=== PATIENT | male | born 1965 | race Caucasian/White ===

== ENCOUNTER 2017-10-19 04:00 | Inpatient (IN) | payer MEDICAID, MEDICARE ==
[2017-10-19] MEDS ORDERED: Sodium Chloride 0.9% 1,000 ML IV ONE (04:24)
[2017-10-19 05:02] LABS: % BASOPHILS 0.4 % (0.0-2.0); % EOSINOPHILS 8.7 % (0.0-5.0); % LYMPHOCYTES 34.1 % (20.0-50.0); % MONOCYTES 8.3 % (2.0-10.0); % NEUTROPHILS 48.5 % (40.0-80.0); EOSINOPHILE ABSOLUTE 0.4 Th/cmm (0.1-0.4); HEMATOCRIT 48.4 % (41.0-60); HEMOGLOBIN 15.8 gm/dL (12-16); LYMPHOCYTE ABSOLUTE 1.6 Th/cmm (1.5-3.0); MEAN CELL VOLUME 85.4 fl (80-99); MEAN CORPUSCULAR HGB CONC 32.7 pg (28.0-36.0); MEAN PLATELET VOLUME 11.2 fl; MONOCYTE ABSOLUTE 0.4 Th/cmm (0.3-1.0); NEUTROPHILE ABSOLUTE 2.3 Th/cmm (1.8-8.0); PLATELET COUNT 64 Th/cmm (150-400); RED BLOOD COUNT 5.66 Mil/cmm (4.30-5.70); RED CELL DISTRIBUTION WIDTH 12.3 % (11.5-20.0); WHITE BLOOD COUNT 4.7 Th/cmm (4.8-10.8)
[2017-10-19 05:12] LABS: INR 1.01 (0.5-1.4); PROTHROMBIN TIME (TEST) 10.5 SECONDS (9.5-11.5)
[2017-10-19 05:21] LABS: ALB/GLOB RATIO 1.4 (1.0-1.8); ALBUMIN 4.2 gm/dL (4.2-5.5); ALKALINE PHOSPHATASE 72 U/L (34-104); AMYLASE SERUM 69 U/L (29-103); ANION GAP 9.3 (7.0-16.0); BILIRUBIN,TOTAL 0.6 mg/dL (0.3-1.0); BUN - UREA NITROGEN 18 mg/dL (7-25); CALCIUM SERUM 9.6 mg/dL (8.6-10.3); CARBON DIOXIDE 28.8 mEq/L (21.0-31.0); CHLORIDE 103 mEq/L (98-107); CREATININE - SERUM 0.6 mg/dL (0.7-1.3); GFR AFRICAN-AMERICAN > 60.0 ml/min (>90); GFR NON AFRICAN-AMERICAN > 60.0 ml/min; GLUCOSE 93 mg/dL (70-105); LIPASE 18 U/L (11-82); POTASSIUM SERUM 4.1 mEq/L (3.5-5.1); SGOT 21 U/L (13-39); SGPT/ALT 17 U/L (7-52); SODIUM SERUM 137 mEq/L (136-145); TOTAL PROTEIN,SERUM 7.3 gm/dL (6.0-8.3)
[2017-10-19 06:04] LABS: URINE MICROSCOPIC INDICATED? YES; URINE SOURCE CATH
[2017-10-19 06:06] LABS: URINE BILIRUBIN NEGATIVE (NEGATIVE); URINE BLOOD MODERATE (NEGATIVE); URINE GLUCOSE (UA) NEGATIVE (NEGATIVE); URINE KETONE NEGATIVE (NEGATIVE); URINE LEUKOCYTE ESTERASE NEGATIVE (NEGATIVE); URINE NITRATE NEGATIVE (NEGATIVE); URINE PROTEIN NEGATIVE (NEGATIVE); URINE UROBILINOGEN 0.2 E.U./dL (0.2 - 1.0)
[2017-10-19 06:07] LABS: URINE CLARITY HAZY (CLEAR); URINE COLOR YELLOW
[2017-10-19 06:15] LABS: URINE BACTERIA FEW /hpf (NONE SEEN); URINE EPITHELIAL CELLS FEW /lpf (FEW)
--- NOTE | 2017-10-19 06:49 | ED Physician Chart ---
ED Chief Complaint/HPI - Patient Information Date Seen:: 10/19/17 Time Seen:: 06:00 Chief Complaint:: coffee grounds emesis History of Present Illness:: 52 yr old male from [facility] [place] for emesis this am otherwise stable vitals Allergies:: Allergies Allergy/AdvReac Type Severity Reaction Status Date / Time No Known Allergies Allergy Verified 10/19/17 04:11 Vitals:: Vital Signs - 8 hr 10/19/17 10/19/17 04:00 06:14 Temp 97.0 F HR 56 56 RR 20 18 BP 104/74 113/84 O2 Sat % 94 Historian:: Medical Records ED Review of Systems - Review of Systems General/Constitutional: No fever Skin: No skin lesions Head: No headache Eyes: No loss of vision ENT: Earache Neck: No swelling Cardio Vascular: No chest pain Pulmonary: No SOB, No cough GI: Vomiting G/U: No hematuria Musculoskeletal: Other Endocrine: Other Psychiatric: Prior psych history Hematopoietic: No bruising Allergic/Immuno: No angioedema Neurological: No syncope ED Past Medical History - Past Medical History Obtainable: No (pt non verbal see records) Past Medical History: Other (chorea itz metabolic encepalopathy) Family History: Other Social History: Non Smoker Psychiatricy History: Dementia Medication: Reviewed Family Medical History - Family Member Mother History Unknown: Yes (non contributory) ED Labs/Radiology/EKG Results - Lab Results Results: Laboratory Tests 10/19/17 10/19/17 10/19/17 04:45 04:45 04:45 WBC 4.7 L RBC 5.66 Hgb 15.8 Hct 48.4 MCV 85.4 MCH 28.0 MCHC Differential 32.7 RDW 12.3 Plt Count 64 L MPV 11.2 Neutrophils % 48.5 Lymphocytes % 34.1 Monocytes % 8.3 Eosinophils % 8.7 H Basophils % 0.4 PT 10.5 INR 1.01 PTT (Actin FS) 28.3 Sodium 137 Potassium 4.1 Chloride 103 Carbon Dioxide 28.8 Anion Gap 9.3 BUN 18 Creatinine 0.6 L Est GFR ( Amer) > 60.0 Est GFR (Non-Af Amer) > 60.0 BUN/Creatinine Ratio 30.0 Glucose 93 Calcium 9.6 Total Bilirubin 0.6 AST 21 ALT 17 Alkaline Phosphatase 72 Total Protein 7.3 Albumin 4.2 Globulin 3.1 Albumin/Globulin Ratio 1.4 Amylase 69 Lipase 18 Urine Source Urine Color Urine Clarity Urine pH Ur Specific [place] Urine Protein Urine Glucose (UA) Urine Ketones Urine Blood Urine Nitrate Urine Bilirubin Urine Urobilinogen Ur Leukocyte Esterase Urine RBC Urine WBC Ur Epithelial Cells Urine Bacteria 10/19/17 05:35 WBC RBC Hgb Hct MCV MCH MCHC Differential RDW Plt Count MPV Neutrophils % Lymphocytes % Monocytes % Eosinophils % Basophils % PT INR PTT (Actin FS) Sodium Potassium Chloride Carbon Dioxide Anion Gap BUN Creatinine Est GFR ( Amer) Est GFR (Non-Af Amer) BUN/Creatinine Ratio Glucose Calcium Total Bilirubin AST ALT Alkaline Phosphatase Total Protein Albumin Globulin Albumin/Globulin Ratio Amylase Lipase Urine Source CATH Urine Color YELLOW Urine Clarity HAZY Urine pH 8.0 Ur Specific [place] 1.010 Urine Protein NEGATIVE Urine Glucose (UA) NEGATIVE Urine Ketones NEGATIVE Urine Blood MODERATE H Urine Nitrate NEGATIVE Urine Bilirubin NEGATIVE Urine Urobilinogen 0.2 Ur Leukocyte Esterase NEGATIVE Urine RBC 10-25 H Urine WBC 2-5 Ur Epithelial Cells FEW Urine Bacteria FEW - Radiology Results Results: SEE REPORTS - EKG Interpretations EKG Time:: 04:35 Rate & Rhythm: 54 NSR [place]: NL Intervals: OLD ANTERLATERAL ID ED Assessment - Assessment General Assessment: ENCEPALOPATHY ED Septic Shock - . Is Septic Shock (SBP<90, OR Lactate>4 mmol\L) present?: No - <6hrs of presentation: Vital Signs: Vital Signs - 8 hr 10/19/17 10/19/17 04:00 06:14 Temp 97.0 F HR 56 56 RR 20 18 BP 104/74 113/84 O2 Sat % 94 ED Discharge Plan - Patient Disposition Admit/Discharge/Transfer: Acute Care w/in this hosp Condition at Disposition: Unchanged
--- NOTE | 2017-10-19 07:15 | Diagnostic Imaging Report ---
Portable chest x-ray History: Cough Allowing for portable technique the heart size is normal. No focal pulmonary parenchymal processes. No hilar or mediastinal abnormalities. Impression: No acute abnormalities.
--- NOTE | 2017-10-19 07:17 | Diagnostic Imaging Report ---
CT scan abdomen and pelvis without intravenous contrast HISTORY: Hematemesis Total DLP equals 417 CTDI equals 7.9 Axial sections were obtained from the xiphoid process down to the pubic symphysis. The liver exhibits a homogeneous parenchyma. No focal lesions. The spleen appears normal. Detail is limited due to degree of patient motion. No focal amenities seen in the region of the pancreas. No significant focal renal lesions. Gastrostomy tube is seen. No significant bowel dilatation. The exam of the pelvis demonstrates a moderately distended stool-filled rectum and lower sigmoid colon. No abnormal masses or abnormal fluid collections. IMPRESSION: 1. Moderately distended stool-filled rectum and lower sigmoid colon 2. No other definite acute abnormalities 3. Gastrostomy tube
[2017-10-19] MEDS: D5-0.45NS 1,000 ML IV SCH (17:21)
[2017-10-20] MEDS: D5-0.45NS 1,000 ML IV SCH ×2 (02:31→15:28)
[2017-10-20 05:19] LABS: HEMATOCRIT 46.9 % (41.0-60); HEMOGLOBIN 15.4 gm/dL (12-16)
[2017-10-20 05:41] LABS: INR 1.06 (0.5-1.4)
[2017-10-20] MEDS ORDERED: Diatrizoate Meglumine/Diatri 30 mL Sol PO ONE (13:29)
--- NOTE | 2017-10-20 13:29 | GI Progress Note ---
Subjective - Review of Systems Subjective: ADMITTED FOR COFFEE GROUND EMESIS NO ACTIVE BLEEDING NO CONSENT AVAILABLE FOR EGD TODAY Objective - Results Result Diagrams: 10/20/17 04:34 10/19/17 04:45 Recent Labs: Laboratory Last Values WBC 4.7 Th/cmm (4.8-10.8) L 10/19/17 04:45 RBC 5.66 Mil/cmm (4.30-5.70) 10/19/17 04:45 Hgb 15.4 gm/dL (12-16) 10/20/17 04:34 Hct 46.9 % (41.0-60) 10/20/17 04:34 MCV 85.4 fl (80-99) 10/19/17 04:45 MCH 28.0 pg (26.0-30.0) 10/19/17 04:45 MCHC Differential 32.7 pg (28.0-36.0) 10/19/17 04:45 RDW 12.3 % (11.5-20.0) 10/19/17 04:45 Plt Count 64 Th/cmm (150-400) L 10/19/17 04:45 MPV 11.2 fl 10/19/17 04:45 Neutrophils % 48.5 % (40.0-80.0) 10/19/17 04:45 Lymphocytes % 34.1 % (20.0-50.0) 10/19/17 04:45 Monocytes % 8.3 % (2.0-10.0) 10/19/17 04:45 Eosinophils % 8.7 % (0.0-5.0) H 10/19/17 04:45 Basophils % 0.4 % (0.0-2.0) 10/19/17 04:45 PT 11.0 SECONDS (9.5-11.5) 10/20/17 04:34 INR 1.06 (0.5-1.4) 10/20/17 04:34 PTT (Actin FS) 28.3 SECONDS (26.0-38.0) 10/19/17 04:45 Sodium 137 mEq/L (136-145) 10/19/17 04:45 Potassium 4.1 mEq/L (3.5-5.1) 10/19/17 04:45 Chloride 103 mEq/L (98-107) 10/19/17 04:45 Carbon Dioxide 28.8 mEq/L (21.0-31.0) 10/19/17 04:45 Anion Gap 9.3 (7.0-16.0) 10/19/17 04:45 BUN 18 mg/dL (7-25) 10/19/17 04:45 Creatinine 0.6 mg/dL (0.7-1.3) L 10/19/17 04:45 Est GFR ( Amer) > 60.0 ml/min (>90) 10/19/17 04:45 Est GFR (Non-Af Amer) > 60.0 ml/min 10/19/17 04:45 BUN/Creatinine Ratio 30.0 10/19/17 04:45 Glucose 93 mg/dL (70-105) 10/19/17 04:45 Calcium 9.6 mg/dL (8.6-10.3) 10/19/17 04:45 Total Bilirubin 0.6 mg/dL (0.3-1.0) 10/19/17 04:45 AST 21 U/L (13-39) 10/19/17 04:45 ALT 17 U/L (7-52) 10/19/17 04:45 Alkaline Phosphatase 72 U/L (34-104) 10/19/17 04:45 Total Protein 7.3 gm/dL (6.0-8.3) 10/19/17 04:45 Albumin 4.2 gm/dL (4.2-5.5) 10/19/17 04:45 Globulin 3.1 gm/dL 10/19/17 04:45 Albumin/Globulin Ratio 1.4 (1.0-1.8) 10/19/17 04:45 Amylase 69 U/L (29-103) 10/19/17 04:45 Lipase 18 U/L (11-82) 10/19/17 04:45 Urine Source CATH 10/19/17 05:35 Urine Color YELLOW 10/19/17 05:35 Urine Clarity HAZY (CLEAR) 10/19/17 05:35 Urine pH 8.0 (4.6 - 8.0) 10/19/17 05:35 Ur Specific [place] 1.010 (1.005-1.030) 10/19/17 05:35 Urine Protein NEGATIVE mg/dL (NEGATIVE) 10/19/17 05:35 Urine Glucose (UA) NEGATIVE mg/dL (NEGATIVE) 10/19/17 05:35 Urine Ketones NEGATIVE mg/dL (NEGATIVE) 10/19/17 05:35 Urine Blood MODERATE (NEGATIVE) H 10/19/17 05:35 Urine Nitrate NEGATIVE (NEGATIVE) 10/19/17 05:35 Urine Bilirubin NEGATIVE (NEGATIVE) 10/19/17 05:35 Urine Urobilinogen 0.2 E.U./dL (0.2 - 1.0) 10/19/17 05:35 Ur Leukocyte Esterase NEGATIVE (NEGATIVE) 10/19/17 05:35 Urine RBC 10-25 /hpf (0-5) H 10/19/17 05:35 Urine WBC 2-5 /hpf (0-5) 10/19/17 05:35 Ur Epithelial Cells FEW /lpf (FEW) 10/19/17 05:35 Urine Bacteria FEW /hpf (NONE SEEN) 10/19/17 05:35 - Physical Exam Vitals and I&O: Vital Signs Temp 97.6 F 10/20/17 11:32 Pulse 60 10/20/17 11:32 Resp 17 10/20/17 11:32 BP 112/72 10/20/17 11:32 Pulse Ox 96 10/20/17 11:32 Intake & Output 10/19/17 10/20/17 10/20/17 18:59 06:59 18:59 Intake Total 733.333 Balance 733.333 Weight (lbs) 57.153 kg Intake: Intake, IV Amount 733.333 D5-0.45NS 1,000 ml @ 80 733.333 mls/hr IV .[id number] [facility] Rx #:[id number] Other: # Voids 3 # Bowel Movements 0 Weight Source Bedscale Active Medications: Current Medications Dextrose/Sodium Chloride (D5-0.45ns) 1,000 mls @ 80 mls/hr IV .[id number] [facility] Stop: 12/18/17 09:59 Last Admin: 10/20/17 02:31 Dose: 80 mls/hr Ondansetron HCl (Zofran) 4 mg IV Q6H PRN PRN Reason: Nausea / Vomiting Stop: 12/18/17 09:59 Pantoprazole Sodium (Protonix) 40 mg IVP BID [facility]ID Stop: 12/18/17 16:59 Last Admin: 10/20/17 08:52 Dose: 40 mg Assessment/Plan - Assessment Assessment: 52 YO MALE WITH UPPER GI BLEED WITH COFFEE GROUND EMESIS NO FURTHER BLEEDING COULD NOT DO EGD SINCE NO CONSENT HGB NORMAL 1.UPPER GI SERIES 2.FOLLOW H/H 3.PROTONIX 4.CONSIDER EGD IF HGB DROPS OR ACTIVE BLEEDING PROVIDED THAT CONSENT CAN BE OBTAINED
--- NOTE | 2017-10-20 14:46 | Diagnostic Imaging Report ---
Upper GI (Limited), through gastrostomy tube HISTORY: Gastrointestinal bleeding Both water-soluble contrast and barium were instilled into the gastric lumen. Gastrostomy tube. The exam is limited due to difficulty in patient positioning. There appears to be an abnormal contour involving the body and gastric antral region along with what appears to be markedly abnormal thickened and irregular gastric folds. Mucosal pathology cannot be excluded. Clinical correlation is needed. There is free flow of contrast into the small bowel. No obstruction. The duodenal bulb cannot be well evaluated due to overlying small bowel. IMPRESSION: 1. Limited exam as noted above 2. Evidence of markedly abnormal thickened irregular gastric mucosal folds. Mucosal pathology cannot be excluded. Clinical correlation is needed.
--- NOTE | 2017-10-20 18:06 | Consultation ---
DATE OF CONSULTATION: 10/19/2017 INPATIENT GI CONSULTATION REFERRING PHYSICIAN: Dr. Hans Bernstein. REASON FOR CONSULTATION: Upper GI bleed. HISTORY OF PRESENT ILLNESS: This is a 52-year-old male from a skilled facility who was sent to the hospital because of a coffee-ground emesis. The patient is otherwise poor historian, unable to give any meaningful history. PAST MEDICAL HISTORY: Dysphagia. PAST SURGICAL HISTORY: PEG tube placement. FAMILY HISTORY: Noncontributory. SOCIAL HISTORY: Resident of skilled facility. ALLERGIES: None. CURRENT MEDICATIONS: Zofran, Protonix, IV fluids. REVIEW OF SYSTEMS: Unobtainable. PHYSICAL EXAMINATION: VITAL SIGNS: Temperature 97.1, breathing 19, pulse of 82, blood pressure 108/68, and satting 95%. GENERAL: In no apparent distress. HEENT: Eyes are anicteric. Normal conjunctivae. Normocephalic and atraumatic. Moist mucous membranes. NECK: Soft and supple. CHEST: Clear. No effort CARDIOVASCULAR: Regular rate and rhythm. ABDOMEN: Soft, nontender and nondistended with a G-tube. SKIN: Warm and dry. EXTREMITIES: Revealed no cyanosis. LABORATORY DATA: Show white count ____, hemoglobin 15.8, and platelets of 54. INR 1.01. Total bilirubin 0.6, AST 21, ALT 17 and alkaline phosphatase 72. IMPRESSION: This is a 52-year-old male with coffee-ground emesis, cause could be from the peptic ulcer disease. The patient has known G-tube. PLAN: 1. EGD. 2. Continue Protonix. 3. Follow H and H. Thank you for allowing me to participate. Please call me if you have any questions. JOB# [id number]
--- NOTE | 2017-10-20 19:52 | General Progress Note ---
Subjective - Review of Systems Service Date: 10/20/17 Subjective: Patient seen and examined no new event reported Objective - Results Result Diagrams: 10/20/17 04:34 10/19/17 04:45 Recent Labs: Laboratory Last Values WBC 4.7 Th/cmm (4.8-10.8) L 10/19/17 04:45 RBC 5.66 Mil/cmm (4.30-5.70) 10/19/17 04:45 Hgb 15.4 gm/dL (12-16) 10/20/17 04:34 Hct 46.9 % (41.0-60) 10/20/17 04:34 MCV 85.4 fl (80-99) 10/19/17 04:45 MCH 28.0 pg (26.0-30.0) 10/19/17 04:45 MCHC Differential 32.7 pg (28.0-36.0) 10/19/17 04:45 RDW 12.3 % (11.5-20.0) 10/19/17 04:45 Plt Count 64 Th/cmm (150-400) L 10/19/17 04:45 MPV 11.2 fl 10/19/17 04:45 Neutrophils % 48.5 % (40.0-80.0) 10/19/17 04:45 Lymphocytes % 34.1 % (20.0-50.0) 10/19/17 04:45 Monocytes % 8.3 % (2.0-10.0) 10/19/17 04:45 Eosinophils % 8.7 % (0.0-5.0) H 10/19/17 04:45 Basophils % 0.4 % (0.0-2.0) 10/19/17 04:45 PT 11.0 SECONDS (9.5-11.5) 10/20/17 04:34 INR 1.06 (0.5-1.4) 10/20/17 04:34 PTT (Actin FS) 28.3 SECONDS (26.0-38.0) 10/19/17 04:45 Sodium 137 mEq/L (136-145) 10/19/17 04:45 Potassium 4.1 mEq/L (3.5-5.1) 10/19/17 04:45 Chloride 103 mEq/L (98-107) 10/19/17 04:45 Carbon Dioxide 28.8 mEq/L (21.0-31.0) 10/19/17 04:45 Anion Gap 9.3 (7.0-16.0) 10/19/17 04:45 BUN 18 mg/dL (7-25) 10/19/17 04:45 Creatinine 0.6 mg/dL (0.7-1.3) L 10/19/17 04:45 Est GFR ( Amer) > 60.0 ml/min (>90) 10/19/17 04:45 Est GFR (Non-Af Amer) > 60.0 ml/min 10/19/17 04:45 BUN/Creatinine Ratio 30.0 10/19/17 04:45 Glucose 93 mg/dL (70-105) 10/19/17 04:45 Calcium 9.6 mg/dL (8.6-10.3) 10/19/17 04:45 Total Bilirubin 0.6 mg/dL (0.3-1.0) 10/19/17 04:45 AST 21 U/L (13-39) 10/19/17 04:45 ALT 17 U/L (7-52) 10/19/17 04:45 Alkaline Phosphatase 72 U/L (34-104) 10/19/17 04:45 Total Protein 7.3 gm/dL (6.0-8.3) 10/19/17 04:45 Albumin 4.2 gm/dL (4.2-5.5) 10/19/17 04:45 Globulin 3.1 gm/dL 10/19/17 04:45 Albumin/Globulin Ratio 1.4 (1.0-1.8) 10/19/17 04:45 Amylase 69 U/L (29-103) 10/19/17 04:45 Lipase 18 U/L (11-82) 10/19/17 04:45 Urine Source CATH 10/19/17 05:35 Urine Color YELLOW 10/19/17 05:35 Urine Clarity HAZY (CLEAR) 10/19/17 05:35 Urine pH 8.0 (4.6 - 8.0) 10/19/17 05:35 Ur Specific [place] 1.010 (1.005-1.030) 10/19/17 05:35 Urine Protein NEGATIVE mg/dL (NEGATIVE) 10/19/17 05:35 Urine Glucose (UA) NEGATIVE mg/dL (NEGATIVE) 10/19/17 05:35 Urine Ketones NEGATIVE mg/dL (NEGATIVE) 10/19/17 05:35 Urine Blood MODERATE (NEGATIVE) H 10/19/17 05:35 Urine Nitrate NEGATIVE (NEGATIVE) 10/19/17 05:35 Urine Bilirubin NEGATIVE (NEGATIVE) 10/19/17 05:35 Urine Urobilinogen 0.2 E.U./dL (0.2 - 1.0) 10/19/17 05:35 Ur Leukocyte Esterase NEGATIVE (NEGATIVE) 10/19/17 05:35 Urine RBC 10-25 /hpf (0-5) H 10/19/17 05:35 Urine WBC 2-5 /hpf (0-5) 10/19/17 05:35 Ur Epithelial Cells FEW /lpf (FEW) 10/19/17 05:35 Urine Bacteria FEW /hpf (NONE SEEN) 10/19/17 05:35 - Physical Exam Vitals and I&O: Vital Signs Temp 98.7 F 10/20/17 16:07 Pulse 74 10/20/17 16:07 Resp 18 10/20/17 16:07 BP 96/69 10/20/17 16:07 Pulse Ox 97 10/20/17 16:07 Intake & Output 10/20/17 10/20/17 10/21/17 06:59 18:59 06:59 Intake Total 356.581 8164 Balance 858.484 6418 Weight (lbs) 57.153 kg Intake: Intake, IV Amount 425.465 3797 D5-0.45NS 1,000 ml @ 80 202.486 0303 mls/hr IV .[id number] [facility] Rx #:[id number] Other: # Voids 3 # Bowel Movements 0 Weight Source Bedscale Active Medications: Current Medications Dextrose/Sodium Chloride (D5-0.45ns) 1,000 mls @ 80 mls/hr IV .[id number] [facility] Stop: 12/18/17 09:59 Last Admin: 10/20/17 15:28 Dose: 80 mls/hr Ondansetron HCl (Zofran) 4 mg IV Q6H PRN PRN Reason: Nausea / Vomiting Stop: 12/18/17 09:59 Pantoprazole Sodium (Protonix) 40 mg IVP BID [facility] Stop: 12/18/17 16:59 Last Admin: 10/20/17 17:36 Dose: 40 mg Cardiovascular: Regular rate Lungs: Clear to auscultation Abdomen: Soft, no Tender Assessment/Plan - Assessment Assessment: GI BLEED Mental retardation - Plan Plan: stable EGD per GI Protonix IV Fluids
--- NOTE | 2017-10-20 20:40 | History & Physical ---
ADMIT DATE: 10/19/2017 CHIEF COMPLAINT: Cough, GI bleed. HISTORY OF PRESENT ILLNESS: This is a 52-year-old male who lives at nursing facility underlying mental retardation, was brought into the Emergency Room for evaluation of the coffee ground emesis. The patient was admitted for GI bleed workup. The patient had mental retardation, unable to communicate. Most of the history obtained probably from medical record. PAST MEDICAL HISTORY: Mental retardation, mental health disorders and dysphagia, on tube feeding. FAMILY HISTORY: Noncontributory. SOCIAL HISTORY: longterm resident. ALLERGIES: No known drug. REVIEW OF SYSTEMS: Unobtainable. PHYSICAL EXAMINATION: VITAL SIGNS: Temperature 97.6, pulse 60, respiration rate 17, blood pressure 112/72. HEART: S1, S2 normal. LUNGS: Clear. ABDOMEN: Soft. G-tube site clean. EXTREMITIES: No edema noted. AVAILABLE LABORATORY DATA: None. ASSESSMENT: 1. Gastrointestinal bleed. 2. Mental retardation. 3. Mental health disorder. PLAN: The patient admitted to tele unit and kept n.p.o. GI consult, H and H has been monitored. IV Protonix started. Further GI workup per GI specialist. The patient was given IV fluids and Protonix. The patient's condition and plan was discussed. JOB# [id number]
[2017-10-21] MEDS: D5-0.45NS 1,000 ML IV SCH ×2 (04:02→18:44)
--- NOTE | 2017-10-21 09:36 | GI Progress Note ---
Subjective - Review of Systems Service Date: 10/21/17 Subjective: No overt GI bleeding Objective - Results Result Diagrams: 10/20/17 04:34 10/19/17 04:45 Recent Labs: Laboratory Last Values WBC 4.7 Th/cmm (4.8-10.8) L 10/19/17 04:45 RBC 5.66 Mil/cmm (4.30-5.70) 10/19/17 04:45 Hgb 15.4 gm/dL (12-16) 10/20/17 04:34 Hct 46.9 % (41.0-60) 10/20/17 04:34 MCV 85.4 fl (80-99) 10/19/17 04:45 MCH 28.0 pg (26.0-30.0) 10/19/17 04:45 MCHC Differential 32.7 pg (28.0-36.0) 10/19/17 04:45 RDW 12.3 % (11.5-20.0) 10/19/17 04:45 Plt Count 64 Th/cmm (150-400) L 10/19/17 04:45 MPV 11.2 fl 10/19/17 04:45 Neutrophils % 48.5 % (40.0-80.0) 10/19/17 04:45 Lymphocytes % 34.1 % (20.0-50.0) 10/19/17 04:45 Monocytes % 8.3 % (2.0-10.0) 10/19/17 04:45 Eosinophils % 8.7 % (0.0-5.0) H 10/19/17 04:45 Basophils % 0.4 % (0.0-2.0) 10/19/17 04:45 PT 11.0 SECONDS (9.5-11.5) 10/20/17 04:34 INR 1.06 (0.5-1.4) 10/20/17 04:34 PTT (Actin FS) 28.3 SECONDS (26.0-38.0) 10/19/17 04:45 Sodium 137 mEq/L (136-145) 10/19/17 04:45 Potassium 4.1 mEq/L (3.5-5.1) 10/19/17 04:45 Chloride 103 mEq/L (98-107) 10/19/17 04:45 Carbon Dioxide 28.8 mEq/L (21.0-31.0) 10/19/17 04:45 Anion Gap 9.3 (7.0-16.0) 10/19/17 04:45 BUN 18 mg/dL (7-25) 10/19/17 04:45 Creatinine 0.6 mg/dL (0.7-1.3) L 10/19/17 04:45 Est GFR ( Amer) > 60.0 ml/min (>90) 10/19/17 04:45 Est GFR (Non-Af Amer) > 60.0 ml/min 10/19/17 04:45 BUN/Creatinine Ratio 30.0 10/19/17 04:45 Glucose 93 mg/dL (70-105) 10/19/17 04:45 Calcium 9.6 mg/dL (8.6-10.3) 10/19/17 04:45 Total Bilirubin 0.6 mg/dL (0.3-1.0) 10/19/17 04:45 AST 21 U/L (13-39) 10/19/17 04:45 ALT 17 U/L (7-52) 10/19/17 04:45 Alkaline Phosphatase 72 U/L (34-104) 10/19/17 04:45 Total Protein 7.3 gm/dL (6.0-8.3) 10/19/17 04:45 Albumin 4.2 gm/dL (4.2-5.5) 10/19/17 04:45 Globulin 3.1 gm/dL 10/19/17 04:45 Albumin/Globulin Ratio 1.4 (1.0-1.8) 10/19/17 04:45 Amylase 69 U/L (29-103) 10/19/17 04:45 Lipase 18 U/L (11-82) 10/19/17 04:45 Urine Source CATH 10/19/17 05:35 Urine Color YELLOW 10/19/17 05:35 Urine Clarity HAZY (CLEAR) 10/19/17 05:35 Urine pH 8.0 (4.6 - 8.0) 10/19/17 05:35 Ur Specific [place] 1.010 (1.005-1.030) 10/19/17 05:35 Urine Protein NEGATIVE mg/dL (NEGATIVE) 10/19/17 05:35 Urine Glucose (UA) NEGATIVE mg/dL (NEGATIVE) 10/19/17 05:35 Urine Ketones NEGATIVE mg/dL (NEGATIVE) 10/19/17 05:35 Urine Blood MODERATE (NEGATIVE) H 10/19/17 05:35 Urine Nitrate NEGATIVE (NEGATIVE) 10/19/17 05:35 Urine Bilirubin NEGATIVE (NEGATIVE) 10/19/17 05:35 Urine Urobilinogen 0.2 E.U./dL (0.2 - 1.0) 10/19/17 05:35 Ur Leukocyte Esterase NEGATIVE (NEGATIVE) 10/19/17 05:35 Urine RBC 10-25 /hpf (0-5) H 10/19/17 05:35 Urine WBC 2-5 /hpf (0-5) 10/19/17 05:35 Ur Epithelial Cells FEW /lpf (FEW) 10/19/17 05:35 Urine Bacteria FEW /hpf (NONE SEEN) 10/19/17 05:35 - Physical Exam Vitals and I&O: Vital Signs Temp 98.4 F 10/21/17 04:00 Pulse 70 10/21/17 04:00 Resp 19 10/21/17 04:00 BP 112/67 10/21/17 04:00 Pulse Ox 97 10/21/17 04:00 Intake & Output 10/20/17 10/21/17 10/21/17 18:59 06:59 18:59 Intake Total 1000 1000 Balance 1000 1000 Weight (lbs) 57.153 kg Intake: Intake, IV Amount 1000 1000 D5-0.45NS 1,000 ml @ 80 1000 1000 mls/hr IV .[id number] [facility] Rx #:[id number] Other: # Voids 3 # Bowel Movements 0 Weight Source Bedscale Active Medications: Current Medications Dextrose/Sodium Chloride (D5-0.45ns) 1,000 mls @ 80 mls/hr IV .[id number] [facility] Stop: 12/18/17 09:59 Last Admin: 10/21/17 04:02 Dose: 80 mls/hr Ondansetron HCl (Zofran) 4 mg IV Q6H PRN PRN Reason: Nausea / Vomiting Stop: 12/18/17 09:59 Pantoprazole Sodium (Protonix) 40 mg IVP BID [facility] Stop: 12/18/17 16:59 Last Admin: 10/21/17 08:21 Dose: 40 mg General: Alert HEENT: Atraumatic Cardiovascular: Regular rate Lungs: Clear to auscultation Abdomen: Soft, no Tender, no Hepatomegaly, no Splenomegaly, no Distended, no Rebound, no Mass Assessment/Plan - Assessment Assessment: 52 YO MALE WITH UPPER GI BLEED WITH COFFEE GROUND EMESIS NO FURTHER BLEEDING COULD NOT DO EGD SINCE NO CONSENT HGB NORMAL Still trying to obtain consent for EGD from pt's facility. UGI series shows possible mucosal irregularity. 1.EGD when we have consent. If emergent, we can do 2 physician consent 2.FOLLOW H/H 3.PROTONIX 4. can start feeds today, advance slowly to goal and hold for high residual
--- NOTE | 2017-10-21 21:18 | General Progress Note ---
Subjective - Review of Systems Service Date: 10/21/17 Subjective: Patient seen and examined HH stable no reported bleeding Objective - Results Result Diagrams: 10/20/17 04:34 10/19/17 04:45 Recent Labs: Laboratory Last Values WBC 4.7 Th/cmm (4.8-10.8) L 10/19/17 04:45 RBC 5.66 Mil/cmm (4.30-5.70) 10/19/17 04:45 Hgb 15.4 gm/dL (12-16) 10/20/17 04:34 Hct 46.9 % (41.0-60) 10/20/17 04:34 MCV 85.4 fl (80-99) 10/19/17 04:45 MCH 28.0 pg (26.0-30.0) 10/19/17 04:45 MCHC Differential 32.7 pg (28.0-36.0) 10/19/17 04:45 RDW 12.3 % (11.5-20.0) 10/19/17 04:45 Plt Count 64 Th/cmm (150-400) L 10/19/17 04:45 MPV 11.2 fl 10/19/17 04:45 Neutrophils % 48.5 % (40.0-80.0) 10/19/17 04:45 Lymphocytes % 34.1 % (20.0-50.0) 10/19/17 04:45 Monocytes % 8.3 % (2.0-10.0) 10/19/17 04:45 Eosinophils % 8.7 % (0.0-5.0) H 10/19/17 04:45 Basophils % 0.4 % (0.0-2.0) 10/19/17 04:45 PT 11.0 SECONDS (9.5-11.5) 10/20/17 04:34 INR 1.06 (0.5-1.4) 10/20/17 04:34 PTT (Actin FS) 28.3 SECONDS (26.0-38.0) 10/19/17 04:45 Sodium 137 mEq/L (136-145) 10/19/17 04:45 Potassium 4.1 mEq/L (3.5-5.1) 10/19/17 04:45 Chloride 103 mEq/L (98-107) 10/19/17 04:45 Carbon Dioxide 28.8 mEq/L (21.0-31.0) 10/19/17 04:45 Anion Gap 9.3 (7.0-16.0) 10/19/17 04:45 BUN 18 mg/dL (7-25) 10/19/17 04:45 Creatinine 0.6 mg/dL (0.7-1.3) L 10/19/17 04:45 Est GFR ( Amer) > 60.0 ml/min (>90) 10/19/17 04:45 Est GFR (Non-Af Amer) > 60.0 ml/min 10/19/17 04:45 BUN/Creatinine Ratio 30.0 10/19/17 04:45 Glucose 93 mg/dL (70-105) 10/19/17 04:45 Calcium 9.6 mg/dL (8.6-10.3) 10/19/17 04:45 Total Bilirubin 0.6 mg/dL (0.3-1.0) 10/19/17 04:45 AST 21 U/L (13-39) 10/19/17 04:45 ALT 17 U/L (7-52) 10/19/17 04:45 Alkaline Phosphatase 72 U/L (34-104) 10/19/17 04:45 Total Protein 7.3 gm/dL (6.0-8.3) 10/19/17 04:45 Albumin 4.2 gm/dL (4.2-5.5) 10/19/17 04:45 Globulin 3.1 gm/dL 10/19/17 04:45 Albumin/Globulin Ratio 1.4 (1.0-1.8) 10/19/17 04:45 Amylase 69 U/L (29-103) 10/19/17 04:45 Lipase 18 U/L (11-82) 10/19/17 04:45 Urine Source CATH 10/19/17 05:35 Urine Color YELLOW 10/19/17 05:35 Urine Clarity HAZY (CLEAR) 10/19/17 05:35 Urine pH 8.0 (4.6 - 8.0) 10/19/17 05:35 Ur Specific [place] 1.010 (1.005-1.030) 10/19/17 05:35 Urine Protein NEGATIVE mg/dL (NEGATIVE) 10/19/17 05:35 Urine Glucose (UA) NEGATIVE mg/dL (NEGATIVE) 10/19/17 05:35 Urine Ketones NEGATIVE mg/dL (NEGATIVE) 10/19/17 05:35 Urine Blood MODERATE (NEGATIVE) H 10/19/17 05:35 Urine Nitrate NEGATIVE (NEGATIVE) 10/19/17 05:35 Urine Bilirubin NEGATIVE (NEGATIVE) 10/19/17 05:35 Urine Urobilinogen 0.2 E.U./dL (0.2 - 1.0) 10/19/17 05:35 Ur Leukocyte Esterase NEGATIVE (NEGATIVE) 10/19/17 05:35 Urine RBC 10-25 /hpf (0-5) H 10/19/17 05:35 Urine WBC 2-5 /hpf (0-5) 10/19/17 05:35 Ur Epithelial Cells FEW /lpf (FEW) 10/19/17 05:35 Urine Bacteria FEW /hpf (NONE SEEN) 10/19/17 05:35 - Physical Exam Vitals and I&O: Vital Signs Temp 97.5 F 10/21/17 16:00 Pulse 57 10/21/17 16:00 Resp 18 10/21/17 17:55 BP 104/71 10/21/17 16:00 Pulse Ox 96 10/21/17 16:00 Intake & Output 10/21/17 10/21/17 10/22/17 06:59 18:59 06:59 Intake Total 1000 1000 106.667 Balance 1000 1000 106.667 Weight (lbs) 57.153 kg Intake: Intake, IV Amount 1000 1000 106.667 D5-0.45NS 1,000 ml @ 80 1000 1000 106.667 mls/hr IV .[id number] [facility] Rx #:[id number] Other: # Voids 3 # Bowel Movements 0 Weight Source Bedscale Active Medications: Current Medications Dextrose/Sodium Chloride (D5-0.45ns) 1,000 mls @ 80 mls/hr IV .[id number] [facility] Stop: 12/18/17 09:59 Last Infusion: 10/21/17 20:04 Dose: 80 mls/hr Ondansetron HCl (Zofran) 4 mg IV Q6H PRN PRN Reason: Nausea / Vomiting Stop: 12/18/17 09:59 Pantoprazole Sodium (Protonix) 40 mg IVP BID [facility] Stop: 12/18/17 16:59 Last Admin: 10/21/17 18:44 Dose: 40 mg Cardiovascular: Regular rate Lungs: Clear to auscultation Abdomen: Soft, Hepatomegaly, Splenomegaly, Rebound, Mass, no Tender, no Distended Assessment/Plan - Assessment Assessment: GI BLEED Mental retardation - Plan Plan: HH stable EGD per GI Per Social service no family Feeding restarted by GI Protonix IV Fluids
[2017-10-21] MEDS ORDERED: Magnesium Hydroxide (MOM) 30 mL UDC GT PRN (21:22)
[2017-10-22] MEDS: D5-0.45NS 1,000 ML IV SCH ×2 (07:13→21:59)
[2017-10-22] MEDS: POLYETHYLENE GLYCOL 3350 17 GM PACK GT SCH (09:20)
--- NOTE | 2017-10-22 10:50 | GI Progress Note ---
Subjective - Review of Systems Subjective: No overt GI bleeding Objective - Results Result Diagrams: 10/20/17 04:34 10/19/17 04:45 Recent Labs: Laboratory Last Values WBC 4.7 Th/cmm (4.8-10.8) L 10/19/17 04:45 RBC 5.66 Mil/cmm (4.30-5.70) 10/19/17 04:45 Hgb 15.4 gm/dL (12-16) 10/20/17 04:34 Hct 46.9 % (41.0-60) 10/20/17 04:34 MCV 85.4 fl (80-99) 10/19/17 04:45 MCH 28.0 pg (26.0-30.0) 10/19/17 04:45 MCHC Differential 32.7 pg (28.0-36.0) 10/19/17 04:45 RDW 12.3 % (11.5-20.0) 10/19/17 04:45 Plt Count 64 Th/cmm (150-400) L 10/19/17 04:45 MPV 11.2 fl 10/19/17 04:45 Neutrophils % 48.5 % (40.0-80.0) 10/19/17 04:45 Lymphocytes % 34.1 % (20.0-50.0) 10/19/17 04:45 Monocytes % 8.3 % (2.0-10.0) 10/19/17 04:45 Eosinophils % 8.7 % (0.0-5.0) H 10/19/17 04:45 Basophils % 0.4 % (0.0-2.0) 10/19/17 04:45 PT 11.0 SECONDS (9.5-11.5) 10/20/17 04:34 INR 1.06 (0.5-1.4) 10/20/17 04:34 PTT (Actin FS) 28.3 SECONDS (26.0-38.0) 10/19/17 04:45 Sodium 137 mEq/L (136-145) 10/19/17 04:45 Potassium 4.1 mEq/L (3.5-5.1) 10/19/17 04:45 Chloride 103 mEq/L (98-107) 10/19/17 04:45 Carbon Dioxide 28.8 mEq/L (21.0-31.0) 10/19/17 04:45 Anion Gap 9.3 (7.0-16.0) 10/19/17 04:45 BUN 18 mg/dL (7-25) 10/19/17 04:45 Creatinine 0.6 mg/dL (0.7-1.3) L 10/19/17 04:45 Est GFR ( Amer) > 60.0 ml/min (>90) 10/19/17 04:45 Est GFR (Non-Af Amer) > 60.0 ml/min 10/19/17 04:45 BUN/Creatinine Ratio 30.0 10/19/17 04:45 Glucose 93 mg/dL (70-105) 10/19/17 04:45 Calcium 9.6 mg/dL (8.6-10.3) 10/19/17 04:45 Total Bilirubin 0.6 mg/dL (0.3-1.0) 10/19/17 04:45 AST 21 U/L (13-39) 10/19/17 04:45 ALT 17 U/L (7-52) 10/19/17 04:45 Alkaline Phosphatase 72 U/L (34-104) 10/19/17 04:45 Total Protein 7.3 gm/dL (6.0-8.3) 10/19/17 04:45 Albumin 4.2 gm/dL (4.2-5.5) 10/19/17 04:45 Globulin 3.1 gm/dL 10/19/17 04:45 Albumin/Globulin Ratio 1.4 (1.0-1.8) 10/19/17 04:45 Amylase 69 U/L (29-103) 10/19/17 04:45 Lipase 18 U/L (11-82) 10/19/17 04:45 Urine Source CATH 10/19/17 05:35 Urine Color YELLOW 10/19/17 05:35 Urine Clarity HAZY (CLEAR) 10/19/17 05:35 Urine pH 8.0 (4.6 - 8.0) 10/19/17 05:35 Ur Specific [place] 1.010 (1.005-1.030) 10/19/17 05:35 Urine Protein NEGATIVE mg/dL (NEGATIVE) 10/19/17 05:35 Urine Glucose (UA) NEGATIVE mg/dL (NEGATIVE) 10/19/17 05:35 Urine Ketones NEGATIVE mg/dL (NEGATIVE) 10/19/17 05:35 Urine Blood MODERATE (NEGATIVE) H 10/19/17 05:35 Urine Nitrate NEGATIVE (NEGATIVE) 10/19/17 05:35 Urine Bilirubin NEGATIVE (NEGATIVE) 10/19/17 05:35 Urine Urobilinogen 0.2 E.U./dL (0.2 - 1.0) 10/19/17 05:35 Ur Leukocyte Esterase NEGATIVE (NEGATIVE) 10/19/17 05:35 Urine RBC 10-25 /hpf (0-5) H 10/19/17 05:35 Urine WBC 2-5 /hpf (0-5) 10/19/17 05:35 Ur Epithelial Cells FEW /lpf (FEW) 10/19/17 05:35 Urine Bacteria FEW /hpf (NONE SEEN) 10/19/17 05:35 - Physical Exam Vitals and I&O: Vital Signs Temp 97.0 F 10/22/17 09:36 Pulse 60 10/22/17 09:36 Resp 19 10/22/17 09:36 BP 109/67 10/22/17 09:36 Pulse Ox 99 10/22/17 09:36 Intake & Output 10/21/17 10/22/17 10/22/17 18:59 06:59 18:59 Intake Total 1000 296.667 892 Balance 1000 296.667 892 Weight (lbs) 55.565 kg Intake: Intake, IV Amount 1000 106.667 892 D5-0.45NS 1,000 ml @ 80 1000 106.667 892 mls/hr IV .[id number] [facility] Rx #:[id number] Other 190 Other: # Voids 2 # Bowel Movements 0 Weight Source Bedscale Active Medications: Current Medications Acetaminophen (Tylenol 650mg/20.3ml Suspension) 650 mg GT Q6H PRN PRN Reason: Pain (Mild) Stop: 12/20/17 21:29 Ascorbic Acid (Vitamin C) 500 mg GT DAILY [facility] Stop: 12/21/17 08:59 Last Admin: 10/22/17 09:21 Dose: 500 mg Bisacodyl (Dulcolax 10 Mg Supp) 10 mg RC DAILY PRN PRN Reason: Constipation Stop: 12/20/17 21:23 Docusate Sodium (Colace) 100 mg PO DAILY [facility] Stop: 12/21/17 08:59 Famotidine (Pepcid) 20 mg GT DAILY [facility] Stop: 12/21/17 08:59 Last Admin: 10/22/17 09:21 Dose: 20 mg Dextrose/Sodium Chloride (D5-0.45ns) 1,000 mls @ 80 mls/hr IV .[id number] [facility] Stop: 12/18/17 09:59 Last Admin: 10/22/17 07:13 Dose: 80 mls/hr Magnesium Hydroxide (Milk Of Magnesia) 30 ml GT DAILY PRN PRN Reason: Constipation Stop: 12/20/17 21:21 Midodrine (Proamatine) 10 mg GT TID [facility] Stop: 12/21/17 08:59 Last Admin: 10/22/17 09:20 Dose: 10 mg Olanzapine (Zyprexa) 10 mg GT DAILY [facility] PRN Reason: Protocol Stop: 12/21/17 08:59 Last Admin: 10/22/17 09:21 Dose: 10 mg Ondansetron HCl (Zofran) 4 mg IV Q6H PRN PRN Reason: Nausea / Vomiting Stop: 12/18/17 09:59 Pantoprazole Sodium (Protonix) 40 mg IVP BID [facility] Stop: 12/18/17 16:59 Last Admin: 10/22/17 09:20 Dose: 40 mg Polyethylene Glycol (Miralax) 17 gm GT DAILY [facility] Stop: 12/21/17 08:59 Last Admin: 10/22/17 09:20 Dose: 17 gm General: Alert HEENT: Atraumatic Cardiovascular: Regular rate Lungs: Clear to auscultation Abdomen: Soft, Hepatomegaly, Splenomegaly, Rebound, Mass, no Tender, no Distended Assessment/Plan - Assessment Assessment: 52 YO MALE WITH UPPER GI BLEED WITH COFFEE GROUND EMESIS NO FURTHER BLEEDING COULD NOT DO EGD SINCE NO CONSENT HGB NORMAL Still trying to obtain consent for EGD from pt's facility. UGI series shows possible mucosal irregularity. 1.EGD when we have consent from the patient's conservator. This is not life threatening, but the pt should have EGD given imaging finding. 2.FOLLOW H/H 3.PROTONIX 4. can start feeds today, advance slowly to goal and hold for high residual
[2017-10-22] MEDS: Docusate Sodium 100 mg/10 mL UD GT SCH (13:57)
--- NOTE | 2017-10-22 15:43 | General Progress Note ---
Subjective - Review of Systems Service Date: 10/22/17 Subjective: Patient seen and examined HH stable no reported bleeding Objective - Results Result Diagrams: 10/20/17 04:34 10/19/17 04:45 Recent Labs: Laboratory Last Values WBC 4.7 Th/cmm (4.8-10.8) L 10/19/17 04:45 RBC 5.66 Mil/cmm (4.30-5.70) 10/19/17 04:45 Hgb 15.4 gm/dL (12-16) 10/20/17 04:34 Hct 46.9 % (41.0-60) 10/20/17 04:34 MCV 85.4 fl (80-99) 10/19/17 04:45 MCH 28.0 pg (26.0-30.0) 10/19/17 04:45 MCHC Differential 32.7 pg (28.0-36.0) 10/19/17 04:45 RDW 12.3 % (11.5-20.0) 10/19/17 04:45 Plt Count 64 Th/cmm (150-400) L 10/19/17 04:45 MPV 11.2 fl 10/19/17 04:45 Neutrophils % 48.5 % (40.0-80.0) 10/19/17 04:45 Lymphocytes % 34.1 % (20.0-50.0) 10/19/17 04:45 Monocytes % 8.3 % (2.0-10.0) 10/19/17 04:45 Eosinophils % 8.7 % (0.0-5.0) H 10/19/17 04:45 Basophils % 0.4 % (0.0-2.0) 10/19/17 04:45 PT 11.0 SECONDS (9.5-11.5) 10/20/17 04:34 INR 1.06 (0.5-1.4) 10/20/17 04:34 PTT (Actin FS) 28.3 SECONDS (26.0-38.0) 10/19/17 04:45 Sodium 137 mEq/L (136-145) 10/19/17 04:45 Potassium 4.1 mEq/L (3.5-5.1) 10/19/17 04:45 Chloride 103 mEq/L (98-107) 10/19/17 04:45 Carbon Dioxide 28.8 mEq/L (21.0-31.0) 10/19/17 04:45 Anion Gap 9.3 (7.0-16.0) 10/19/17 04:45 BUN 18 mg/dL (7-25) 10/19/17 04:45 Creatinine 0.6 mg/dL (0.7-1.3) L 10/19/17 04:45 Est GFR ( Amer) > 60.0 ml/min (>90) 10/19/17 04:45 Est GFR (Non-Af Amer) > 60.0 ml/min 10/19/17 04:45 BUN/Creatinine Ratio 30.0 10/19/17 04:45 Glucose 93 mg/dL (70-105) 10/19/17 04:45 Calcium 9.6 mg/dL (8.6-10.3) 10/19/17 04:45 Total Bilirubin 0.6 mg/dL (0.3-1.0) 10/19/17 04:45 AST 21 U/L (13-39) 10/19/17 04:45 ALT 17 U/L (7-52) 10/19/17 04:45 Alkaline Phosphatase 72 U/L (34-104) 10/19/17 04:45 Total Protein 7.3 gm/dL (6.0-8.3) 10/19/17 04:45 Albumin 4.2 gm/dL (4.2-5.5) 10/19/17 04:45 Globulin 3.1 gm/dL 10/19/17 04:45 Albumin/Globulin Ratio 1.4 (1.0-1.8) 10/19/17 04:45 Amylase 69 U/L (29-103) 10/19/17 04:45 Lipase 18 U/L (11-82) 10/19/17 04:45 Urine Source CATH 10/19/17 05:35 Urine Color YELLOW 10/19/17 05:35 Urine Clarity HAZY (CLEAR) 10/19/17 05:35 Urine pH 8.0 (4.6 - 8.0) 10/19/17 05:35 Ur Specific [place] 1.010 (1.005-1.030) 10/19/17 05:35 Urine Protein NEGATIVE mg/dL (NEGATIVE) 10/19/17 05:35 Urine Glucose (UA) NEGATIVE mg/dL (NEGATIVE) 10/19/17 05:35 Urine Ketones NEGATIVE mg/dL (NEGATIVE) 10/19/17 05:35 Urine Blood MODERATE (NEGATIVE) H 10/19/17 05:35 Urine Nitrate NEGATIVE (NEGATIVE) 10/19/17 05:35 Urine Bilirubin NEGATIVE (NEGATIVE) 10/19/17 05:35 Urine Urobilinogen 0.2 E.U./dL (0.2 - 1.0) 10/19/17 05:35 Ur Leukocyte Esterase NEGATIVE (NEGATIVE) 10/19/17 05:35 Urine RBC 10-25 /hpf (0-5) H 10/19/17 05:35 Urine WBC 2-5 /hpf (0-5) 10/19/17 05:35 Ur Epithelial Cells FEW /lpf (FEW) 10/19/17 05:35 Urine Bacteria FEW /hpf (NONE SEEN) 10/19/17 05:35 - Physical Exam Vitals and I&O: Vital Signs Temp 97.2 F 10/22/17 13:00 Pulse 51 10/22/17 13:00 Resp 19 10/22/17 13:00 BP 108/61 10/22/17 13:00 Pulse Ox 99 10/22/17 13:00 Intake & Output 10/21/17 10/22/17 10/22/17 18:59 06:59 18:59 Intake Total 1000 296.667 892 Balance 1000 296.667 892 Weight (lbs) 55.565 kg Intake: Intake, IV Amount 1000 106.667 892 D5-0.45NS 1,000 ml @ 80 1000 106.667 892 mls/hr IV .[id number] [facility] Rx #:[id number] Other 190 Other: # Voids 2 # Bowel Movements 0 Weight Source Bedscale Active Medications: Current Medications Acetaminophen (Tylenol 650mg/20.3ml Suspension) 650 mg GT Q6H PRN PRN Reason: Pain (Mild) Stop: 12/20/17 21:29 Ascorbic Acid (Vitamin C) 500 mg GT DAILY [facility] Stop: 12/21/17 08:59 Last Admin: 10/22/17 09:21 Dose: 500 mg Bisacodyl (Dulcolax 10 Mg Supp) 10 mg RC DAILY PRN PRN Reason: Constipation Stop: 12/20/17 21:23 Last Admin: 10/22/17 13:57 Dose: 10 mg Docusate Sodium (Colace) 100 mg GT DAILY [facility] Stop: 12/21/17 11:14 Last Admin: 10/22/17 13:57 Dose: 100 mg Famotidine (Pepcid) 20 mg GT DAILY [facility] Stop: 12/21/17 08:59 Last Admin: 10/22/17 09:21 Dose: 20 mg Dextrose/Sodium Chloride (D5-0.45ns) 1,000 mls @ 80 mls/hr IV .[id number] [facility] Stop: 12/18/17 09:59 Last Admin: 10/22/17 07:13 Dose: 80 mls/hr Magnesium Hydroxide (Milk Of Magnesia) 30 ml GT DAILY PRN PRN Reason: Constipation Stop: 12/20/17 21:21 Midodrine (Proamatine) 10 mg GT TID [facility] Stop: 12/21/17 08:59 Last Admin: 10/22/17 13:57 Dose: 10 mg Olanzapine (Zyprexa) 10 mg GT DAILY [facility] PRN Reason: Protocol Stop: 12/21/17 08:59 Last Admin: 10/22/17 09:21 Dose: 10 mg Ondansetron HCl (Zofran) 4 mg IV Q6H PRN PRN Reason: Nausea / Vomiting Stop: 12/18/17 09:59 Pantoprazole Sodium (Protonix) 40 mg IVP BID [facility] Stop: 12/18/17 16:59 Last Admin: 10/22/17 09:20 Dose: 40 mg Polyethylene Glycol (Miralax) 17 gm GT DAILY [facility] Stop: 12/21/17 08:59 Last Admin: 10/22/17 09:20 Dose: 17 gm Cardiovascular: Regular rate Lungs: Clear to auscultation Abdomen: Soft, Hepatomegaly, Splenomegaly, Rebound, Mass, no Tender, no Distended Assessment/Plan - Assessment Assessment: GI BLEED Mental retardation - Plan Plan: Patient HH is stable Still awaiting EGD consent. Per GI no life threating issue since no active bleeding and HH stable DC back to [facility] today with outpatient EGD arrangement per PCP. DC plan discussed with the patient's nurse
[2017-10-23] MEDS: POLYETHYLENE GLYCOL 3350 17 GM PACK GT SCH (08:51)
[2017-10-23] MEDS: Docusate Sodium 100 mg/10 mL UD GT SCH (08:51)
--- NOTE | 2017-10-23 09:17 | GI Progress Note ---
Subjective - Review of Systems Service Date: 10/23/17 Subjective: No overt GI bleeding Objective - Results Result Diagrams: 10/20/17 04:34 10/19/17 04:45 Recent Labs: Laboratory Last Values WBC 4.7 Th/cmm (4.8-10.8) L 10/19/17 04:45 RBC 5.66 Mil/cmm (4.30-5.70) 10/19/17 04:45 Hgb 15.4 gm/dL (12-16) 10/20/17 04:34 Hct 46.9 % (41.0-60) 10/20/17 04:34 MCV 85.4 fl (80-99) 10/19/17 04:45 MCH 28.0 pg (26.0-30.0) 10/19/17 04:45 MCHC Differential 32.7 pg (28.0-36.0) 10/19/17 04:45 RDW 12.3 % (11.5-20.0) 10/19/17 04:45 Plt Count 64 Th/cmm (150-400) L 10/19/17 04:45 MPV 11.2 fl 10/19/17 04:45 Neutrophils % 48.5 % (40.0-80.0) 10/19/17 04:45 Lymphocytes % 34.1 % (20.0-50.0) 10/19/17 04:45 Monocytes % 8.3 % (2.0-10.0) 10/19/17 04:45 Eosinophils % 8.7 % (0.0-5.0) H 10/19/17 04:45 Basophils % 0.4 % (0.0-2.0) 10/19/17 04:45 PT 11.0 SECONDS (9.5-11.5) 10/20/17 04:34 INR 1.06 (0.5-1.4) 10/20/17 04:34 PTT (Actin FS) 28.3 SECONDS (26.0-38.0) 10/19/17 04:45 Sodium 137 mEq/L (136-145) 10/19/17 04:45 Potassium 4.1 mEq/L (3.5-5.1) 10/19/17 04:45 Chloride 103 mEq/L (98-107) 10/19/17 04:45 Carbon Dioxide 28.8 mEq/L (21.0-31.0) 10/19/17 04:45 Anion Gap 9.3 (7.0-16.0) 10/19/17 04:45 BUN 18 mg/dL (7-25) 10/19/17 04:45 Creatinine 0.6 mg/dL (0.7-1.3) L 10/19/17 04:45 Est GFR ( Amer) > 60.0 ml/min (>90) 10/19/17 04:45 Est GFR (Non-Af Amer) > 60.0 ml/min 10/19/17 04:45 BUN/Creatinine Ratio 30.0 10/19/17 04:45 Glucose 93 mg/dL (70-105) 10/19/17 04:45 Calcium 9.6 mg/dL (8.6-10.3) 10/19/17 04:45 Total Bilirubin 0.6 mg/dL (0.3-1.0) 10/19/17 04:45 AST 21 U/L (13-39) 10/19/17 04:45 ALT 17 U/L (7-52) 10/19/17 04:45 Alkaline Phosphatase 72 U/L (34-104) 10/19/17 04:45 Total Protein 7.3 gm/dL (6.0-8.3) 10/19/17 04:45 Albumin 4.2 gm/dL (4.2-5.5) 10/19/17 04:45 Globulin 3.1 gm/dL 10/19/17 04:45 Albumin/Globulin Ratio 1.4 (1.0-1.8) 10/19/17 04:45 Amylase 69 U/L (29-103) 10/19/17 04:45 Lipase 18 U/L (11-82) 10/19/17 04:45 Urine Source CATH 10/19/17 05:35 Urine Color YELLOW 10/19/17 05:35 Urine Clarity HAZY (CLEAR) 10/19/17 05:35 Urine pH 8.0 (4.6 - 8.0) 10/19/17 05:35 Ur Specific [place] 1.010 (1.005-1.030) 10/19/17 05:35 Urine Protein NEGATIVE mg/dL (NEGATIVE) 10/19/17 05:35 Urine Glucose (UA) NEGATIVE mg/dL (NEGATIVE) 10/19/17 05:35 Urine Ketones NEGATIVE mg/dL (NEGATIVE) 10/19/17 05:35 Urine Blood MODERATE (NEGATIVE) H 10/19/17 05:35 Urine Nitrate NEGATIVE (NEGATIVE) 10/19/17 05:35 Urine Bilirubin NEGATIVE (NEGATIVE) 10/19/17 05:35 Urine Urobilinogen 0.2 E.U./dL (0.2 - 1.0) 10/19/17 05:35 Ur Leukocyte Esterase NEGATIVE (NEGATIVE) 10/19/17 05:35 Urine RBC 10-25 /hpf (0-5) H 10/19/17 05:35 Urine WBC 2-5 /hpf (0-5) 10/19/17 05:35 Ur Epithelial Cells FEW /lpf (FEW) 10/19/17 05:35 Urine Bacteria FEW /hpf (NONE SEEN) 10/19/17 05:35 - Physical Exam Vitals and I&O: Vital Signs Temp 97.4 F 10/23/17 07:38 Pulse 59 10/23/17 07:38 Resp 18 10/23/17 07:38 BP 103/66 10/23/17 07:38 Pulse Ox 94 10/23/17 07:38 Intake & Output 10/22/17 10/23/17 10/23/17 18:59 06:59 18:59 Intake Total 892 1720 Balance 892 1720 Weight (lbs) 55.565 kg 55.565 kg Intake: Intake, IV Amount 892 1000 D5-0.45NS 1,000 ml @ 80 892 1000 mls/hr IV .[id number] [facility] Rx #:[id number] Tube Feeding 480 Other 240 Other: # Voids 4 3 # Bowel Movements 1 1 Stool Characteristics Soft Brown Weight Source Bedscale Bedscale Active Medications: Current Medications Acetaminophen (Tylenol 650mg/20.3ml Suspension) 650 mg GT Q6H PRN PRN Reason: Pain (Mild) Stop: 12/20/17 21:29 Ascorbic Acid (Vitamin C) 500 mg GT DAILY [facility] Stop: 12/21/17 08:59 Last Admin: 10/23/17 08:51 Dose: 500 mg Bisacodyl (Dulcolax 10 Mg Supp) 10 mg RC DAILY PRN PRN Reason: Constipation Stop: 12/20/17 21:23 Last Admin: 10/22/17 13:57 Dose: 10 mg Docusate Sodium (Colace) 100 mg GT DAILY [facility] Stop: 12/21/17 11:14 Last Admin: 10/23/17 08:51 Dose: 100 mg Famotidine (Pepcid) 20 mg GT DAILY [facility] Stop: 12/21/17 08:59 Last Admin: 10/23/17 08:51 Dose: 20 mg Dextrose/Sodium Chloride (D5-0.45ns) 1,000 mls @ 80 mls/hr IV .[id number] [facility] Stop: 12/18/17 09:59 Last Admin: 10/22/17 21:59 Dose: 80 mls/hr Magnesium Hydroxide (Milk Of Magnesia) 30 ml GT DAILY PRN PRN Reason: Constipation Stop: 12/20/17 21:21 Midodrine (Proamatine) 10 mg GT TID [facility] Stop: 12/21/17 08:59 Last Admin: 10/23/17 08:51 Dose: 10 mg Olanzapine (Zyprexa) 10 mg GT DAILY DAVID PRN Reason: Protocol Stop: 12/21/17 08:59 Last Admin: 10/23/17 08:51 Dose: 10 mg Ondansetron HCl (Zofran) 4 mg IV Q6H PRN PRN Reason: Nausea / Vomiting Stop: 12/18/17 09:59 Pantoprazole Sodium (Protonix) 40 mg IVP BID [facility] Stop: 12/18/17 16:59 Last Admin: 10/23/17 08:51 Dose: 40 mg Polyethylene Glycol (Miralax) 17 gm GT DAILY [facility] Stop: 12/21/17 08:59 Last Admin: 10/23/17 08:51 Dose: 17 gm General: Alert HEENT: Atraumatic Cardiovascular: Regular rate Lungs: Clear to auscultation Abdomen: Soft, Hepatomegaly, Splenomegaly, Rebound, Mass, no Tender, no Distended Assessment/Plan - Assessment Assessment: 52 YO MALE WITH UPPER GI BLEED WITH COFFEE GROUND EMESIS NO FURTHER BLEEDING COULD NOT DO EGD SINCE NO CONSENT HGB NORMAL Still trying to obtain consent for EGD from pt's facility. UGI series shows possible mucosal irregularity. 1.EGD should be performed once consent is obtained from his conservator given imaging finding. As pt is not bleeding now, this can also be done in the outpt setting 2.FOLLOW H/H 3.PROTONIX 4. cont feeding
[2017-10-23] MEDS: D5-0.45NS 1,000 ML IV SCH (16:04)
--- NOTE | 2017-10-24 09:40 | GI Progress Note ---
Subjective - Review of Systems Service Date: 10/24/17 Subjective: No overt GI bleeding, no new changes Objective - Results Result Diagrams: 10/20/17 04:34 10/19/17 04:45 Recent Labs: Laboratory Last Values WBC 4.7 Th/cmm (4.8-10.8) L 10/19/17 04:45 RBC 5.66 Mil/cmm (4.30-5.70) 10/19/17 04:45 Hgb 15.4 gm/dL (12-16) 10/20/17 04:34 Hct 46.9 % (41.0-60) 10/20/17 04:34 MCV 85.4 fl (80-99) 10/19/17 04:45 MCH 28.0 pg (26.0-30.0) 10/19/17 04:45 MCHC Differential 32.7 pg (28.0-36.0) 10/19/17 04:45 RDW 12.3 % (11.5-20.0) 10/19/17 04:45 Plt Count 64 Th/cmm (150-400) L 10/19/17 04:45 MPV 11.2 fl 10/19/17 04:45 Neutrophils % 48.5 % (40.0-80.0) 10/19/17 04:45 Lymphocytes % 34.1 % (20.0-50.0) 10/19/17 04:45 Monocytes % 8.3 % (2.0-10.0) 10/19/17 04:45 Eosinophils % 8.7 % (0.0-5.0) H 10/19/17 04:45 Basophils % 0.4 % (0.0-2.0) 10/19/17 04:45 PT 11.0 SECONDS (9.5-11.5) 10/20/17 04:34 INR 1.06 (0.5-1.4) 10/20/17 04:34 PTT (Actin FS) 28.3 SECONDS (26.0-38.0) 10/19/17 04:45 Sodium 137 mEq/L (136-145) 10/19/17 04:45 Potassium 4.1 mEq/L (3.5-5.1) 10/19/17 04:45 Chloride 103 mEq/L (98-107) 10/19/17 04:45 Carbon Dioxide 28.8 mEq/L (21.0-31.0) 10/19/17 04:45 Anion Gap 9.3 (7.0-16.0) 10/19/17 04:45 BUN 18 mg/dL (7-25) 10/19/17 04:45 Creatinine 0.6 mg/dL (0.7-1.3) L 10/19/17 04:45 Est GFR ( Amer) > 60.0 ml/min (>90) 10/19/17 04:45 Est GFR (Non-Af Amer) > 60.0 ml/min 10/19/17 04:45 BUN/Creatinine Ratio 30.0 10/19/17 04:45 Glucose 93 mg/dL (70-105) 10/19/17 04:45 Calcium 9.6 mg/dL (8.6-10.3) 10/19/17 04:45 Total Bilirubin 0.6 mg/dL (0.3-1.0) 10/19/17 04:45 AST 21 U/L (13-39) 10/19/17 04:45 ALT 17 U/L (7-52) 10/19/17 04:45 Alkaline Phosphatase 72 U/L (34-104) 10/19/17 04:45 Total Protein 7.3 gm/dL (6.0-8.3) 10/19/17 04:45 Albumin 4.2 gm/dL (4.2-5.5) 10/19/17 04:45 Globulin 3.1 gm/dL 10/19/17 04:45 Albumin/Globulin Ratio 1.4 (1.0-1.8) 10/19/17 04:45 Amylase 69 U/L (29-103) 10/19/17 04:45 Lipase 18 U/L (11-82) 10/19/17 04:45 Urine Source CATH 10/19/17 05:35 Urine Color YELLOW 10/19/17 05:35 Urine Clarity HAZY (CLEAR) 10/19/17 05:35 Urine pH 8.0 (4.6 - 8.0) 10/19/17 05:35 Ur Specific [place] 1.010 (1.005-1.030) 10/19/17 05:35 Urine Protein NEGATIVE mg/dL (NEGATIVE) 10/19/17 05:35 Urine Glucose (UA) NEGATIVE mg/dL (NEGATIVE) 10/19/17 05:35 Urine Ketones NEGATIVE mg/dL (NEGATIVE) 10/19/17 05:35 Urine Blood MODERATE (NEGATIVE) H 10/19/17 05:35 Urine Nitrate NEGATIVE (NEGATIVE) 10/19/17 05:35 Urine Bilirubin NEGATIVE (NEGATIVE) 10/19/17 05:35 Urine Urobilinogen 0.2 E.U./dL (0.2 - 1.0) 10/19/17 05:35 Ur Leukocyte Esterase NEGATIVE (NEGATIVE) 10/19/17 05:35 Urine RBC 10-25 /hpf (0-5) H 10/19/17 05:35 Urine WBC 2-5 /hpf (0-5) 10/19/17 05:35 Ur Epithelial Cells FEW /lpf (FEW) 10/19/17 05:35 Urine Bacteria FEW /hpf (NONE SEEN) 10/19/17 05:35 - Physical Exam Vitals and I&O: Vital Signs Temp 97.6 F 10/24/17 03:46 Pulse 58 10/24/17 03:46 Resp 17 10/24/17 08:26 BP 111/54 10/24/17 03:46 Pulse Ox 96 10/24/17 03:46 Intake & Output 10/23/17 10/24/17 10/24/17 18:59 06:59 18:59 Intake Total 1000 580 Balance 1000 580 Weight (lbs) 62.596 kg Intake: Intake, IV Amount 1000 D5-0.45NS 1,000 ml @ 80 1000 mls/hr IV .[id number] [facility] Rx #:[id number] Tube Feeding 480 Other 100 Other: # Voids 3 Stool Characteristics Soft Weight Source Bedscale Active Medications: Current Medications Acetaminophen (Tylenol 650mg/20.3ml Suspension) 650 mg GT Q6H PRN PRN Reason: Pain (Mild) Stop: 12/20/17 21:29 Ascorbic Acid (Vitamin C) 500 mg GT DAILY [facility] Stop: 12/21/17 08:59 Last Admin: 10/23/17 08:51 Dose: 500 mg Bisacodyl (Dulcolax 10 Mg Supp) 10 mg RC DAILY PRN PRN Reason: Constipation Stop: 12/20/17 21:23 Last Admin: 10/22/17 13:57 Dose: 10 mg Docusate Sodium (Colace) 100 mg GT DAILY [facility] Stop: 12/21/17 11:14 Last Admin: 10/23/17 08:51 Dose: 100 mg Famotidine (Pepcid) 20 mg GT DAILY [facility] Stop: 12/21/17 08:59 Last Admin: 10/23/17 08:51 Dose: 20 mg Dextrose/Sodium Chloride (D5-0.45ns) 1,000 mls @ 80 mls/hr IV .[id number] [facility] Stop: 12/18/17 09:59 Last Admin: 10/23/17 16:04 Dose: 80 mls/hr Magnesium Hydroxide (Milk Of Magnesia) 30 ml GT DAILY PRN PRN Reason: Constipation Stop: 12/20/17 21:21 Midodrine (Proamatine) 10 mg GT TID [facility] Stop: 12/21/17 08:59 Last Admin: 10/23/17 20:53 Dose: 10 mg Olanzapine (Zyprexa) 10 mg GT DAILY [facility] PRN Reason: Protocol Stop: 12/21/17 08:59 Last Admin: 10/23/17 08:51 Dose: 10 mg Ondansetron HCl (Zofran) 4 mg IV Q6H PRN PRN Reason: Nausea / Vomiting Stop: 12/18/17 09:59 Pantoprazole Sodium (Protonix) 40 mg IVP BID [facility] Stop: 12/18/17 16:59 Last Admin: 10/23/17 16:03 Dose: 40 mg Polyethylene Glycol (Miralax) 17 gm GT DAILY [facility] Stop: 12/21/17 08:59 Last Admin: 10/23/17 08:51 Dose: 17 gm General: Alert HEENT: Atraumatic Cardiovascular: Regular rate Lungs: Clear to auscultation Abdomen: Soft, Hepatomegaly, Splenomegaly, Rebound, Mass, no Tender, no Distended Assessment/Plan - Assessment Assessment: 52 YO MALE WITH UPPER GI BLEED WITH COFFEE GROUND EMESIS NO FURTHER BLEEDING COULD NOT DO EGD SINCE NO CONSENT HGB NORMAL Still trying to obtain consent for EGD from pt's facility. UGI series shows possible mucosal irregularity. 1.EGD should be performed once consent is obtained from his conservator given imaging finding. As pt is not bleeding now, this can also be done in the outpt setting 2.FOLLOW H/H 3.PROTONIX 4. cont feeding GI to see this pt as needed, or if consent can be obtained. Please let us know if this is done.
[2017-10-24] MEDS: POLYETHYLENE GLYCOL 3350 17 GM PACK GT SCH (09:42)
[2017-10-24] MEDS: Docusate Sodium 100 mg/10 mL UD GT SCH (09:42)
[2017-10-24] MEDS: D5-0.45NS 1,000 ML IV SCH (19:30)
[2017-10-25] MEDS: D5-0.45NS 1,000 ML IV SCH (06:00)
[2017-10-25] MEDS: POLYETHYLENE GLYCOL 3350 17 GM PACK GT SCH (09:36)
[2017-10-25] MEDS: Docusate Sodium 100 mg/10 mL UD GT SCH (09:36)
[2017-10-26] MEDS: D5-0.45NS 1,000 ML IV SCH (05:17)
[2017-10-26] MEDS: Docusate Sodium 100 mg/10 mL UD GT SCH (08:37)
[2017-10-26] MEDS: POLYETHYLENE GLYCOL 3350 17 GM PACK GT SCH (08:37)
== END 2017-10-26 16:10 | DRG 253 ==
LOC: ER 04:00 → TELE 09:45
PROVIDERS: ADMIT Family Medicine; ATTEND Family Medicine
DX: K92.2 Gastrointestinal hemorrhage, unspecified (principal); G93.40 Encephalopathy, unspecified; Z93.1 Gastrostomy status; R13.10 Dysphagia, unspecified; F03.90 Unspecified dementia, unspecified severity, without behavioral disturbance, psychotic disturbance, mood disturbance, and anxiety; F79 Unspecified intellectual disabilities; Z53.8 Procedure and treatment not carried out for other reasons
CPT/HCPCS: 36415-UA; 71045-TC; 80053-TC; 81001-TC; 82150-TC; 83690-TC; 85014-TC; 85018-TC; 85025-TC; 85610-TC; 87086-90; 93005; C9113; Z7610